=== PATIENT | female | born 1990 | race Caucasian/White ===

== ENCOUNTER 2024-10-03 15:50 | Inpatient (IN) | payer MEDICAID, SELFPAY ==
[2024-10-03 15:51] VITALS: BP 128/83; PULSE 87; TEMP 36.8; O2SAT 95
[2024-10-03 16:15] LABS: Hematocrit 40.5 % (36-47); Hemoglobin 12.70 g/dL (11.27-16.99); Mean Corpuscular HGB Conc 31.4 g/dL (30-55); Mean Corpuscular Hemoglobin 26.8 pg (27-33); Mean Corpuscular Volume 85.6 fl (85-98); Nucleated Red Blood Cells % 0 %; Platelet Count 215 10^3/cmm (157-399); Red Blood Count 4.73 10^6/uL (3.85-5.65); White Blood Count 5.40 10^3/uL (3.29-11.43)
[2024-10-03 16:26] LABS: Glucose Urine UA Negative (Normal); Nitrate Urine Negative (Negative); Specific Gravity, Urine 1.016 (1.005-1.030)
[2024-10-03 16:28] LABS: Add Urine Microscopic? YES
[2024-10-03 16:32] LABS: Acetaminophen < 5.0 ug/mL (10-30); Alanine Aminotransferase 19 U/L (0-33); Albumin Level 3.9 g/dL (3.5-5.2); Alkaline Phosphatase 118 U/L (35-105); Anion Gap 15.5 (5-19); Aspartate Amino Transferase 14 U/L (0-32); Blood Urea Nitrogen 15 mg/dL (6-20); Calcium 9.5 mg/dL (8.5-10.5); Carbon Dioxide 23 mmol/L (22-29); Chloride 107 mmol/L (98-107); Globulin 3.4 g/dL (1.3-4.6); Glucose 135 mg/dL (65-115); Osmolality Calculated 295 mOsm/kg (285-295); Potassium 4.5 mmol/L (3.5-5.1); Salicylate < 0.3 mg/dL (3-10); Sodium 141 mmol/L (136-145); Total Protein 7.3 g/dL (6.6-8.7)
[2024-10-03 16:33] LABS: PCP Screen Urine Negative (Negative)
--- NOTE | 2024-10-03 16:36 | W.ED.ANXIETY ---
HPI - Anxiety General: Chief Complaint: Anxiety Stated Complaint: anxiety, psych eval Time Seen by Provider: 10/03/24 15:51 History of Present Illness: 33-year-old female presents emergency room with complaints of anxiety she was getting anxious and aggressive with staff she lives at a local prison. She has a psych history in the past. She is on multiple medications she is calm at this time and cooperative. She denies suicidal or homicidal ideation. Associated symptoms: Deny chest pain, chills or fever(s) Related Data Home Medications ?Medication ?Instructions ?Recorded ?Confirmed atorvastatin 20 mg tablet (Lipitor) 20 mg PO DAILY 09/30/24 09/30/24 buspirone 10 mg tablet 20 mg PO TID 09/30/24 09/30/24 cetirizine 10 mg tablet (Zyrtec) 10 mg PO DAILY PRN 09/30/24 09/30/24 duloxetine 60 mg capsule,delayed 60 mg PO BID 09/30/24 09/30/24 release famotidine 20 mg tablet 20 mg PO BID 09/30/24 09/30/24 hydroxyzine HCl 50 mg tablet 50 mg PO TID 09/30/24 09/30/24 insulin glargine 100 unit/mL (3 38 unit SUBCUT .hs 09/30/24 09/30/24 mL) subcutaneous pen (Lantus Solostar U-100 Insulin) levonorgestrel 0.15 mg-ethinyl 1 tab PO DAILY 09/30/24 09/30/24 estradiol 30 mcg tablets,3 mos pack(91) levothyroxine 75 mcg tablet 75 mcg PO DAILY 09/30/24 09/30/24 (Euthyrox) loperamide 2 mg capsule 4 mg PO Q6H PRN loose stool 09/30/24 09/30/24 losartan 50 mg tablet 50 mg PO DAILY 09/30/24 09/30/24 metformin 1,000 mg tablet 1,000 mg PO BID 09/30/24 09/30/24 oxybutynin chloride 5 mg 5 mg PO DAILY 09/30/24 09/30/24 tablet,extended release 24 hr prazosin 1 mg capsule 1 mg PO DAILY 09/30/24 09/30/24 propranolol 10 mg tablet 10 mg PO BID 09/30/24 09/30/24 quetiapine 300 mg tablet 600 mg PO .hs 09/30/24 09/30/24 semaglutide 0.25 mg/0.05 mL mg SUBCUT 09/30/24 09/30/24 subcutaneous syringe topiramate 100 mg tablet 100 mg PO BID 09/30/24 09/30/24 tramadol 50 mg tablet 50 mg PO Q6H PRN 09/30/24 09/30/24 Allergies Allergy/AdvReac Type Severity Reaction Status Date / Time amoxicillin Allergy Severe ALGY-Anaphy Verified 10/03/24 16:02 laxis clavulanic acid (From Allergy Severe ALGY-Anaphy Verified 10/03/24 16:02 Augmentin) laxis Penicillins Allergy Severe ALGY-Anaphy Verified 10/03/24 16:02 laxis divalproex sodium (From Allergy Unknown Unknown Verified 10/03/24 16:02 Depakote) Review of Systems Const: Denies: fever(s) or chills Card: Denies: chest pain Resp: Denies: dyspnea GI: Denies: abdominal pain : Denies: dysuria, urinary frequency or urinary urgency Musc: Denies: neck pain or back pain Skin/Breast: Denies: rash PFSH ED PFSH: Medical History Overactive bladder GERD without esophagitis Acquired hypothyroidism Insulin dependent type 2 diabetes mellitus, uncontrolled Essential hypertension Bipolar 1 disorder Generalized anxiety disorder with panic attacks Social History Smoking and tobacco/nicotine status: never used tobacco/nicotine Physical Exam Const: GENERAL APPEARANCE: cooperative ORIENTATION/CONSCIOUSNESS: Yes awake, Yes oriented to person, Yes oriented to place and Yes oriented to time HENMT: COMMON NORMALS: normocephalic, atraumatic and hearing grossly normal bilaterally HEAD & SCALP: normocephalic and atraumatic Resp: COMMON NORMALS: normal respiratory effort, No retractions, No use of accessory muscles and clear to auscultation bilaterally AUSCULTATION: clear to auscultation bilaterally Cardio: COMMON NORMALS: regular rate, regular rhythm and No murmurs present (Cardio) RATE: regular rate RHYTHM: regular rhythm Extremity: COMMON NORMALS: normal to inspection, capillary refill normal, no clubbing, cyanosis or edema, no calf tenderness and no pedal edema Neuro: SENSORIUM/ORIENTATION: Yes oriented to person, Yes oriented to place and Yes oriented to time Skin: COMMON NORMALS: no rashes or lesions noted GENERAL SKIN EXAM: no rashes or lesions noted Course Vital Signs: Vital signs: Vital Signs Temperature 98.3 F 10/03/24 15:51 Pulse Rate 87 10/03/24 15:51 Blood Pressure 128/83 10/03/24 15:51 Pulse Oximetry 95 10/03/24 15:51 Oxygen Delivery Me thod Room Air 10/03/24 15:51 MDM - Anxiety Medical Decision Making Patient has explosive outbursts. She gets very aggressive. She has done this at the prison evidently she was previously in [place] and was transferred there because of an issue related to her explosive outbursts and anxiety. Discussed case with Dr. Vásquez patient is on a may leave medicines to be difficult to adjust as an outpatient and may result in her becoming even more unstable. Initially I discussed the patient we would be recommending admission she became quite aggressive shortly after we gave her a dose of Geodon. We are allowing her to redirect now. Will admit to MPU for medication adjustments and management. At this point she is a danger to herself and others and will be under 96-hour hold Medical Records I reviewed the patient's medical records. Lab Data I reviewed the patient's lab results. 10/03/24 16:06 10/03/24 16:06 Laboratory Results WBC 5.40 10^3/uL (3.29-11.43) 10/03/24 16:06 RBC 4.73 10^6/uL (3.85-5.65) 10/03/24 16:06 Hgb 12.70 g/dL (11.27-16.99) 10/03/24 16:06 Hct 40.5 % (36-47) 10/03/24 16:06 MCV 85.6 fl (85-98) 10/03/24 16:06 MCH 26.8 pg (27-33) L 10/03/24 16:06 MCHC 31.4 g/dL (30-55) 10/03/24 16:06 RDW 14.0 % (12.1-15.1) 10/03/24 16:06 Plt Count 215 10^3/cmm (157-399) 10/03/24 16:06 MPV 9.4 fL (7.4-10.4) 10/03/24 16:06 Neut % (Auto) 62.3 % 10/03/24 16:06 Lymph % (Auto) 30.4 % 10/03/24 16:06 Burt % (Auto) 4.6 % 10/03/24 16:06 Eos % (Auto) 1.9 % 10/03/24 16:06 Baso % (Auto) 0.4 % 10/03/24 16:06 Neut # (Auto) 3.37 10^3/uL (1.8-7.7) 10/03/24 16:06 Lymph # (Auto) 1.6 10^3/uL (0.8-4.8) 10/03/24 16:06 Burt # (Auto) 0.3 10^3/uL (0.2-0.9) 10/03/24 16:06 Eos # (Auto) 0.1 10^3/uL (0.0-0.8) 10/03/24 16:06 Baso # (Auto) 0.0 10^3/uL (0.0-0.1) 10/03/24 16:06 Nucleated RBC % (auto) 0 % 10/03/24 16:06 Nucleated RBCs # 0.0 /100WBC 10/03/24 16:06 Sodium 141 mmol/L (136-145) 10/03/24 16:06 Potassium 4.5 mmol/L (3.5-5.1) 10/03/24 16:06 Chloride 107 mmol/L (98-107) 10/03/24 16:06 Carbon Dioxide 23 mmol/L (22-29) 10/03/24 16:06 Anion Gap 15.5 (5-19) 10/03/24 16:06 BUN 15 mg/dL (6-20) 10/03/24 16:06 Creatinine 1.2 mg/dL (0.5-0.9) H 10/03/24 16:06 GFR Calculation 51.4 mL/min (90-130) L 10/03/24 16:06 Glucose 135 mg/dL (65-115) H 10/03/24 16:06 Calculated Osmolality 295 mOsm/kg (285-295) 10/03/24 16:06 Calcium 9.5 mg/dL (8.5-10.5) 10/03/24 16:06 Total Bilirubin 0.2 mg/dL (0.15-1.2) 10/03/24 16:06 AST 14 U/L (0-32) 10/03/24 16:06 ALT 19 U/L (0-33) 10/03/24 16:06 Alkaline Phosphatase 118 U/L (35-105) H 10/03/24 16:06 Total Protein 7.3 g/dL (6.6-8.7) 10/03/24 16:06 Albumin 3.9 g/dL (3.5-5.2) 10/03/24 16:06 Globulin 3.4 g/dL (1.3-4.6) 10/03/24 16:06 Urine Color Yellow (Yellow) 10/03/24 16:15 Urine Appearance Clear (CLEAR) 10/03/24 16:15 Urine pH 7.0 (5-7) 10/03/24 16:15 Ur Specific [place] 1.016 (1.005-1.030) 10/03/24 16:15 Urine Protein Negative (Negative) 10/03/24 16:15 Urine Glucose (UA) Negative (Normal) 10/03/24 16:15 Urine Ketones Negative (Negative) 10/03/24 16:15 Urine Blood 2+ (Negative) A 10/03/24 16:15 Urine Nitrate Negative (Negative) 10/03/24 16:15 Urine Bilirubin Negative (Negative) 10/03/24 16:15 Urine Urobilinogen 1.0 mg/dL (Negative) 10/03/24 16:15 Ur Leukocyte Esterase Trace (Negative) A 10/03/24 16:15 Urine RBC 0-2 /hpf (0-2) 10/03/24 16:15 Urine WBC 0-5 /hpf (0-5) 10/03/24 16:15 Ur Squamous Epith Cells 6-10 /hpf (0-5) 10/03/24 16:15 Amorphous Sediment Not Reportable 10/03/24 16:15 Urine Bacteria None seen /hpf (NONE) 10/03/24 16:15 Hyaline Casts 0.81 /lpf 10/03/24 16:15 Salicylates < 0.3 mg/dL (3-10) L 10/03/24 16:06 Urine Opiates Screen Negative ng/mL (Negative) 10/03/24 16:15 Acetaminophen < 5.0 ug/mL (10-30) L 10/03/24 16:06 Ur Barbiturates Screen Negative ng/mL (Negative) 10/03/24 16:15 Ur Phencyclidine Scrn Negative ng/mL (Negative) 10/03/24 16:15 Ur Amphetamines Screen Negative ng/mL (Negative) 10/03/24 16:15 U Benzodiazepines Scrn Negative ng/mL (Negative) 10/03/24 16:15 Urine Cocaine Screen Negative ng/mL (Negative) 10/03/24 16:15 U Marijuana (THC) Screen Negative ng/mL (Negative) 10/03/24 16:15 No radiology studies performed this visit Discharge Plan Discharge Patient Disposition: Admitted As Inpatient Clinical Impression: Intermittent explosive behavioral outbursts, Insulin dependent type 2 diabetes mellitus, uncontrolled, Generalized anxiety disorder with panic attacks, Bipolar 1 disorder Condition: Stable Coding Level of Care Code ED Nutrition Consultant for Iris Hein
[2024-10-03] MEDS: water for injection-sterile 10 ML 1.2 ML (17:37)
--- NOTE | 2024-10-03 18:31 | PC.NURSE ---
Involuntary 96 hour hold rights read and reviewed with patient. Gonzalo from security present during reading of rights. Patient verbalized understandings and copy of rights given to patient.
[2024-10-03 20:11] VITALS: BP 124/76; PULSE 83; RESP 19; TEMP 36.9; O2SAT 94
[2024-10-03 20:50] VITALS: BP 124/76; PULSE 83; RESP 19; TEMP 36.9; O2SAT 94
--- NOTE | 2024-10-03 22:11 | PC.NURSE ---
Patients Guardian : Marielena Manny WAS CALLED AND INFORMED OF PATIENTS ADMISSION; [phone] Cell phone number. DO NOT GIVE NUMBER TO PATIENT!!
--- NOTE | 2024-10-04 06:46 | PC.NURSE ---
vitals not doneper nurse, resp 16
[2024-10-04 08:09] VITALS: BP 116/75
[2024-10-04] MEDS: ATORVASTATIN 10 MG TABLET 20 MG PO (08:09)
[2024-10-04 08:20] VITALS: PULSE 80; TEMP 36.3; O2SAT 97
[2024-10-04] MEDS: oxybutynin chloride XL 5 MG TABLET PO (10:09)
[2024-10-04] MEDS: [UNRECOGNIZED DRUG - OTHER] PO (10:45)
[2024-10-04] MEDS: LEVONORGESTREL PO (10:45)
[2024-10-04] MEDS: ETHINYL ESTRADIOL PO (10:45)
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
[2024-10-04 13:51] VITALS: BP 134/84; PULSE 101; RESP 17; TEMP 36.9; O2SAT 96
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
[2024-10-04 20:10] VITALS: BP 123/79; PULSE 87; RESP 18; TEMP 36.9; O2SAT 96
--- NOTE | 2024-10-05 06:05 | PC.NURSE ---
pt asleep, vitals not done per nurse, resp. 16
--- NOTE | 2024-10-05 07:27 | NUR.SHIFT ---
Pt states that she slept good last night, no one interupted her. She rates her anxiety a 5/10 and depressiona 0/10. There are no reports of SI/HI or hallucinations. She states that she has a headache really bad and rates that a 6/10, I have given her tylenol for this. She is sitting calmly in the dayroom coloring with 1:1 sitter at bedside.
[2024-10-05] MEDS: [UNRECOGNIZED DRUG - OTHER] PO (08:49)
[2024-10-05] MEDS: ETHINYL ESTRADIOL PO (08:49)
[2024-10-05] MEDS: LEVONORGESTREL PO (08:49)
[2024-10-05] MEDS: oxybutynin chloride XL 5 MG TABLET PO (08:51)
[2024-10-05] MEDS: ATORVASTATIN 10 MG TABLET 20 MG PO (08:53)
[2024-10-05 08:55] VITALS: BP 158/83
[2024-10-05 08:57] VITALS: BP 158/83; PULSE 85; RESP 17; TEMP 37.3; O2SAT 90
--- NOTE | 2024-10-05 12:50 | W.PM.NPUPNS ---
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 Patient was compliant on the unit. She remained on one-to-one. She had reported some improved sleep with trazodone. She had requested something to help her with anxiety and provided further information regarding her longstanding problems with managing worry. She had endorsed having some occasional nightmares and intense recollections regarding her past trauma. She had been redirectable here on the unit. She had reported that she had lost a significant amount of weight and felt that her medications had been helpful. She had reported that in the last year she had been on BuSpar and stated some help with managing worry. She denied any symptoms suggestive of obsessive-compulsive disorder. She denied any psychotic symptoms or symptoms of trey. Mental Status Exam MSE Comments: She is a casually dressed morbidly obese female who was pleasant and cooperative on interview. Her speech was productive and normal in volume and slightly decreased in rate. There was no evidence of any abnormal involuntary motor movements, tics, or tremors appreciated. There was no evidence of psychomotor retardation. Her mood was described as allright. Her affect was mood congruent and anxious. Her thought process was linear but superficial. Her thought content revealed no suicidal or homicidal ideation. There was no evidence of delusional thinking. She did not appear to be responding to internal stimuli. Her attention span appeared limited. Her recent and remote memory appeared grossly intact. She was alert and oriented to person and place but not date. Her insight is poor. Her judgment is limited. Her impulse control appeared poor. Her fund of knowledge appeared commensurate with mild cognitive impairment. Vitals/I&O/Wt Last Vital Signs Temp 99.1 F 10/05/24 08:57 Pulse 85 10/05/24 08:57 Resp 17 10/05/24 08:57 BP 158/83 10/05/24 08:57 Pulse Ox 90 10/05/24 08:57 O2 Del Method Room Air 10/05/24 08:57 Weight last 48 hrs Weight 181.437 kg Data NPU 10/03/24 16:06 10/03/24 16:06 A&P Assessment and plan 1. Intermittent explosive disorder: 2. Anxiety disorder, unspecified: Plan: 34-year-old female who presents with a history of aggression and anxiety on multiple medications residing in a [facility] for the past 2 weeks. She remains under guardianship. #1.? Engage patient in individual milieu and group therapy. #2?? Recommend sober living treatment at the highest level of care to which the patient is willing to commit #3??? Restart outpatient medications. Increase propranolol to 10mg tid to target anxiety. #4?? 1-1 observation due to aggressioin, ? #5?? Will attempt to gather collateral information PDMP PDMP Reviewed: Not Reviewed Involuntary Hold Information Hold Status: Legal Status: Active Guardianship Date/Time Hold Expires: AMBER GURROLA [phone] CELL DO NOT GIVE TO PATIENT! Attestations NPU Medical Necessity Statement*: Inpatient hospitalization is medically necessary and deemed to ?be ?the clinically appropriate intervention ?at this time.? We will monitor/initiate medications and make changes as indicated.? The patient?s likely length of stay 3-5 days. Coding Level of Care Code Acute Code for [facility] Fwd Diagnoses Intermittent explosive disorder F63.81 Anxiety disorder, unspecified F41.9
--- NOTE | 2024-10-05 13:21 | PC.NURSE ---
Pt was speaking with her aunt on the phone and asked pt if she could speak with staff. Pt agreed. Aunt called into the nurses station. She wante to let us know that prior to the age of 17 pt was diagnosed with autism and was treated as such with medications. She states that she did really well. She says that as she became an adult and was no longer being recognized as autistic as much anymore that's when she began to struggle with unstable behaviors. She states that change is really hard for her and the homes that she has been living at aren't structured enough for her, that's why she does better when she is in the hospital. I passed this information on the Dr. Hernandez.
[2024-10-05 13:51] VITALS: BP 108/67; PULSE 93; RESP 17; TEMP 36.6; O2SAT 93
[2024-10-05 19:59] VITALS: BP 121/73; PULSE 98; RESP 18; TEMP 37.2; O2SAT 93
--- NOTE | 2024-10-05 20:55 | PC.NURSE ---
Addendum entered by Joseph Rincon RN 10/05/24 20:56: Lantus 38ml was not given for a blood sugar of 141 d/t possibility of pt.being brittle. Was not able to reach the [facility]. Guardian was notified and was in agreement to continue to monitor her blood sugar level. The guardian stated the phones were down in [place]. Original Note: WAS UNNABBLE
[2024-10-06 06:00] VITALS: BP 119/76; PULSE 98; RESP 16; TEMP 37.4; O2SAT 97
--- NOTE | 2024-10-06 07:20 | PC.NURSE ---
Pt.'s CBG this am was 138
[2024-10-06] MEDS: ATORVASTATIN 10 MG TABLET 20 MG PO (10:06)
[2024-10-06 10:07] VITALS: BP 119/76
[2024-10-06] MEDS: oxybutynin chloride XL 5 MG TABLET PO (10:07)
[2024-10-06] MEDS: [UNRECOGNIZED DRUG - OTHER] PO (10:08)
[2024-10-06] MEDS: ETHINYL ESTRADIOL PO (10:08)
[2024-10-06] MEDS: LEVONORGESTREL PO (10:08)
--- NOTE | 2024-10-06 10:34 | PC.NURSE ---
ROSE from [facility] called and stated pt. had sent an email to the social work administrator on 10/03/24 and said they had not done much for more. Signee having staff check the Miguel bear to see if something was inside the bear. Staff confirmed nothing was in the bear. Signee informed ROSE that the email was probably sent while pt. was still in the ER and had access to her phone still. ROSE stated pt. was a handful.
--- NOTE | 2024-10-06 10:38 | PC.NURSE ---
Signee let DON know that pt.'s Propranolol had been increased to 10mg TID.
--- NOTE | 2024-10-06 11:13 | PC.NURSE ---
CBG at 11:15 today is 169.
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
[2024-10-06 13:20] VITALS: BP 119/76; PULSE 98; RESP 16; TEMP 37.4
--- NOTE | 2024-10-06 13:24 | PC.NURSE ---
Report called in by phone to a Mari at [facility].
[2024-10-06 13:52] VITALS: BP 94/61; PULSE 88; RESP 17; TEMP 36.6; O2SAT 95
== END 2024-10-06 14:27 | disposition home or self-care (01) | DRG 883 ==
LOC: ER 17:46 → NP 18:30
PROVIDERS: Admitting Provider Psychiatry & Neurology Psychiatry; Emergency Provider Family Medicine; PCP Family Medicine; Visit Provider Psychiatry & Neurology Psychiatry
DX: F63.81 Intermittent explosive disorder (principal); F41.9 Anxiety disorder, unspecified; E66.01 Morbid (severe) obesity due to excess calories; K21.9 Gastro-esophageal reflux disease without esophagitis; E03.9 Hypothyroidism, unspecified; E11.9 Type 2 diabetes mellitus without complications; Z79.4 Long term (current) use of insulin; I10 Essential (primary) hypertension; F31.9 Bipolar disorder, unspecified
CPT/HCPCS: 36415; 36416; 80053; 80306; 80307; 81001; 82962; 85025; 96372; 97150; 97165; 99285; J3486; J9999

== ENCOUNTER 2024-10-17 18:12 | Inpatient (IN) | payer MEDICAID, SELFPAY ==
[2024-10-17 18:16] VITALS: BP 122/75; PULSE 83; RESP 20; TEMP 37; O2SAT 95; BMI 58.2
--- NOTE | 2024-10-17 18:17 | ECG_ITS ---
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
[2024-10-17 18:38] LABS: Hematocrit 39.0 % (36-47); Hemoglobin 12.30 g/dL (11.27-16.99); Mean Corpuscular HGB Conc 31.5 g/dL (30-55); Mean Corpuscular Hemoglobin 27.0 pg (27-33); Mean Corpuscular Volume 85.7 fl (85-98); Nucleated Red Blood Cells % 0 %; Platelet Count 245 10^3/cmm (157-399); Red Blood Count 4.55 10^6/uL (3.85-5.65); White Blood Count 7.10 10^3/uL (3.29-11.43)
[2024-10-17 19:06] LABS: Alanine Aminotransferase 14 U/L (0-33); Albumin Level 3.8 g/dL (3.5-5.2); Alkaline Phosphatase 105 U/L (35-105); Anion Gap 13.4 (5-19); Aspartate Amino Transferase 10 U/L (0-32); Blood Urea Nitrogen 15 mg/dL (6-20); Calcium 9.5 mg/dL (8.5-10.5); Carbon Dioxide 21 mmol/L (22-29); Chloride 106 mmol/L (98-107); Globulin 3.5 g/dL (1.3-4.6); Glucose 106 mg/dL (65-115); Osmolality Calculated 283 mOsm/kg (285-295); Potassium 4.4 mmol/L (3.5-5.1); Sodium 136 mmol/L (136-145); Thyroid Stimulating Hormone 2.01 uIU/mL (0.27-4.20); Total Protein 7.3 g/dL (6.6-8.7)
[2024-10-17 19:11] LABS: Acetaminophen < 5.0 ug/mL (10-30); Alcohol Level < 10 mg/dL (0-10); Creatinine Clr Calc Pharmacy 93.1621; Salicylate < 0.3 mg/dL (3-10)
[2024-10-17 19:36] LABS: Glucose Urine UA Negative (Normal); Nitrate Urine Negative (Negative); Specific Gravity, Urine 1.016 (1.005-1.030)
[2024-10-17 19:40] LABS: Add Urine Microscopic? YES; HCG Qualitative Urine. Negative (Negative)
[2024-10-17 20:23] LABS: PCP Screen Urine Negative (Negative)
[2024-10-17 20:56] LABS: UA Slide Review UA Slide Review Perf
[2024-10-17 22:16] VITALS: BP 124/81; PULSE 78; O2SAT 96
--- NOTE | 2024-10-17 22:46 | PC.NURSE ---
Pt is being admitted, when this nurse asked pt what size scrubs she would need to be changed out into pt states :You don't have my size, last time I was here they didn't have my size then either I had to wear my clothes. Charli reymundo Small notified and called to see if we have size 4x scrubs, at this time we do not have appropriate size scrubs, this nurse and another female staff member searched pt, pt has on red shirt with no strings no button, no bra on, pt has underwear and shorts on with no pockets, no belts no buttons, pt has plastic slip on sandals. PT has no jewelry on. Pt has a trevin bear that pt states last time I went down there they asked the doctor and he said I could keep it. At this time bear searched and nothing noted on bear, this nurse asked if pt would be okay to have bear placed separate until down to [facility], pt states it would be okay. Security aware.
[2024-10-17 23:32] VITALS: BP 119/78; PULSE 71; RESP 18; TEMP 36.9; O2SAT 90
[2024-10-17 23:38] VITALS: BP 124/81; PULSE 78; O2SAT 96
[2024-10-18 06:00] VITALS: BP 119/78; PULSE 71; RESP 18; TEMP 36.9; O2SAT 90
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
[2024-10-18 08:40] VITALS: BP 130/78
[2024-10-18] MEDS: ATORVASTATIN 10 MG TABLET 20 MG PO (08:40)
[2024-10-18] MEDS: oxybutynin chloride XL 5 MG TABLET PO (08:40)
[2024-10-18 14:00] VITALS: BP 124/71; PULSE 84; RESP 20; O2SAT 96
[2024-10-18 20:21] VITALS: BP 123/83; PULSE 81; RESP 16; TEMP 36.7; O2SAT 96
[2024-10-18] MEDS: insulin glargine 100 units/1 mL 38 UNIT SUBCUT (22:04)
[2024-10-19 06:00] VITALS: BP 124/80; PULSE 89; RESP 18; TEMP 36.9; O2SAT 95
[2024-10-19] MEDS: oxybutynin chloride XL 5 MG TABLET PO (08:06)
[2024-10-19] MEDS: ATORVASTATIN 10 MG TABLET 20 MG PO (08:06)
--- NOTE | 2024-10-19 09:49 | P.NPUPN_ITS ---
Subjective NPU 2 Subjective: Patient presented today reporting that she is doing all right. She continues to report that she struggles at her outpatient residential situation but does not struggle here at all bringing the concern that the situation is more about that location and that it is about some baseline psychiatric condition however we did discuss the risks, benefits and alternatives of considering something like Abilify or Invega and she understood and agreed to proceed as documented in this note. She denied any side effects to her medications. Mental Status Exam 2 MSE Comments: This is a morbidly obese white female allowed to wear her home close secondary to not having scrubs large enough to fit her with adequate grooming and eye contact. No abnormal movements except for mild psychomotor agitation. Cooperative with exam and mild distress. Speech was normal rate is slightly decreased volume. Mood described as my meds are not working right, affect seems slightly irritable. Thought process linear. Thought content: Patient endorsed suicidal but denied homicidal ideation, there were no delusions reported or noted, she denied auditory visual hallucination. Attention and concentration were mostly intact and memory was mostly unreliable but likely intentionally so but not formally tested. She is alert and oriented x 3. Insight, judgment and impulse control are impaired. Intellectual ability is limited versus impaired. Vitals/I&O/Wt Last Vital Signs Temp 98.5 F 10/19/24 06:00 Pulse 89 10/19/24 06:00 Resp 18 10/19/24 06:00 BP 124/80 10/19/24 06:00 Pulse Ox 95 10/19/24 06:00 O2 Del Method Room Air 10/19/24 06:00 10/18/24 10/19/24 10/19/24 22:59 06:59 14:59 Intake Total 0 / 0 Balance 0 / 0 Weight last 48 hrs Weight 158.757 kg Data NPU 10/17/24 18:32 10/17/24 18:32 A&P Assessment and plan 1. Intermittent explosive disorder: 2. Anxiety disorder, unspecified: Plan: 34-year-old female who presents with a history of aggression and anxiety on multiple medications residing in a senior care for the past 3 weeks with no active addiction, likely borderline electrical functioning versus intellectual disability mild with a guardian and current failure to adjust at a new facility returning reporting of need for medication changes but it seems she is more interested in the possibility of facility change. 1. Continue current medication. 2. Encourage individual, group and milieu therapy. 3. Obtain collateral information. 4. Continue current level of observation PDMP PDMP Reviewed: Not Reviewed Involuntary Hold Information 2 Hold Status: Legal Status: Active Guardianship Attestations NPU 2 Medical Necessity Statement*: Inpatient hospitalization is medically necessary and the clinically appropriate intervention at this time. We will monitor/initiate medications and make changes as indicated. Likely length of stay 2-4 days. Coding Level of Care Code Acute Code for [facility] Diagnoses Intermittent explosive disorder F63.81 Anxiety disorder, unspecified F41.9
[2024-10-19 13:15] VITALS: BP 90/52; PULSE 85; RESP 20; TEMP 36.4; O2SAT 95
--- NOTE | 2024-10-19 15:12 | PC.NURSE ---
PRN IMODIUM 2 MG GIVEN PO PER PT C/O LOOSE STOOL. WILL CONT TO MONITOR FOR DESIRED MED EFFECTIVENESS.
--- NOTE | 2024-10-19 15:15 | PC.NURSE ---
Patient with ecscoriation under breasts and gaulded to pannus and bilateral groins. Sites cleansed. Patient refused nystatin powder stating she thinks its making it worse. Pillow cases placed to prevent moisture.
[2024-10-19] MEDS: insulin glargine 100 units/1 mL 38 UNIT SUBCUT (20:43)
[2024-10-20 06:00] VITALS: BP 90/57; PULSE 83; RESP 18; TEMP 36.8; O2SAT 95
[2024-10-20 08:53] VITALS: BP 90/57
[2024-10-20] MEDS: oxybutynin chloride XL 5 MG TABLET PO (08:53)
[2024-10-20] MEDS: ATORVASTATIN 10 MG TABLET 20 MG PO (08:53)
--- NOTE | 2024-10-20 12:05 | PC.NURSE ---
Pt.'s guardian called and informed signee that pt. was not appropriate for the SNF, and a place called [facility] was looking at accepting her, but only if pt. was put on a long acting injection. The guardian said prior to being at the [facility] pt was in a hospital for a year before finding placement. Dr. Duque was ok with adding a local company intermodal truck driver inj. wanting to know if pt. has ever been on Abilify or Invega. Pt. believes she has taken Abilify before and suggested signee talk to her aunt. Signee is calling the aunt.
--- NOTE | 2024-10-20 12:14 | PC.NURSE ---
The aunt said pt. has been on Abilify before and she thought she did well with the medication, better than the medication she is currently on..
--- NOTE | 2024-10-20 12:18 | PC.NURSE ---
Dr. Duque gave verbal order to start Abilify 10mg PO now and then QD. Also gave verbal order for Abilify Maintena 400mg IM to be given today.
[2024-10-20] MEDS: ARIPiprazole Maintena 400 MG IM (12:50)
[2024-10-20] MEDS: ETHINYL ESTRADIOL PO (12:50)
[2024-10-20] MEDS: LEVONORGESTREL PO (12:50)
--- NOTE | 2024-10-20 12:58 | PC.NURSE ---
Pt given 400mg IM Abilify injection in L deltoid. Pt tolerated shot well.
--- NOTE | 2024-10-20 13:17 | P.NPUPN_ITS ---
Subjective NPU 2 Subjective: Patient presented today reporting things are going really well. She reports she was unaware that the facility was looking for alternatives. She reported that she only has soreness from the injection of Abilify Maintena which was started after discussion of the risks, benefits and alternatives with her and her guardian and they understood and agreed to proceed as is documented in this note. She reports that she is thankful for our initiating this new medication because she reported feeling better already. She denied any side effects to the medication. Mental Status Exam 2 MSE Comments: This is a morbidly obese white female allowed to wear her home close secondary to not having scrubs large enough to fit her with adequate grooming and eye contact. No abnormal movements except for mild psychomotor agitation. Cooperative with exam and mild distress. Speech was normal rate is slightly decreased volume. Mood described as my meds are not working right, affect seems slightly irritable. Thought process linear. Thought content: Patient endorsed suicidal but denied homicidal ideation, there were no delusions reported or noted, she denied auditory visual hallucination. Attention and concentration were mostly intact and memory was mostly unreliable but likely intentionally so but not formally tested. She is alert and oriented x 3. Insight, judgment and impulse control are impaired. Intellectual ability is limited versus impaired. Vitals/I&O/Wt Last Vital Signs Temp 98.3 F 10/20/24 06:00 Pulse 83 10/20/24 06:00 Resp 18 10/20/24 06:00 BP 90/57 10/20/24 08:53 Pulse Ox 95 10/20/24 06:00 O2 Del Method Room Air 10/20/24 06:00 Data NPU 10/17/24 18:32 10/17/24 18:32 A&P Assessment and plan 1. Intermittent explosive disorder: 2. Anxiety disorder, unspecified: Plan: 34-year-old female who presents with a history of aggression and anxiety on multiple medications residing in a detention for the past 3 weeks with no active addiction, likely borderline electrical functioning versus intellectual disability mild with a guardian and current failure to adjust at a new facility returning reporting of need for medication changes but it seems she is more interested in the possibility of facility change. 1. Continue current medication. Patient given Abilify Maintena 400 mg IM and given oral coadministration for the 2 weeks per protocol so has 13 days remaining of oral Abilify. 2. Encourage individual, group and milieu therapy. 3. Obtain collateral information. Apparently patient may have an opportunity to go to a new facility. 4. Continue current level of observation PDMP PDMP Reviewed: Not Reviewed Involuntary Hold Information 2 Hold Status: Legal Status: Active Guardianship Attestations NPU 2 Medical Necessity Statement*: Inpatient hospitalization is medically necessary and the clinically appropriate intervention at this time. We will monitor/initiate medications and make changes as indicated. Likely length of stay 1-3 days. Coding Level of Care Code Acute Code for [facility] Diagnoses Intermittent explosive disorder F63.81 Anxiety disorder, unspecified F41.9
[2024-10-20 13:58] VITALS: BP 108/69; PULSE 89; RESP 18; TEMP 36.8; O2SAT 96
[2024-10-20 20:27] VITALS: BP 145/83; PULSE 85; RESP 18; TEMP 37.4; O2SAT 95
[2024-10-20] MEDS: insulin glargine 100 units/1 mL 38 UNIT SUBCUT (20:55)
[2024-10-21 06:00] VITALS: BP 100/63; PULSE 94; RESP 16; TEMP 36.9; O2SAT 93
[2024-10-21] MEDS: LEVONORGESTREL PO (08:35)
[2024-10-21] MEDS: ETHINYL ESTRADIOL PO (08:35)
[2024-10-21] MEDS: ATORVASTATIN 10 MG TABLET 20 MG PO (08:36)
[2024-10-21] MEDS: oxybutynin chloride XL 5 MG TABLET PO (08:36)
[2024-10-21 08:39] VITALS: BP 115/78
[2024-10-21 08:40] VITALS: BP 115/78
--- NOTE | 2024-10-21 11:25 | NUR.SHIFT ---
Pt states that she slept good last night. She rates her anxiety is a 3/10 and depression 0/10. No reports of SI/HI or hallucinations. She rates her bilateral ankle pain and low back pain a 5/10. She is calm and cooperative on assessment.
--- NOTE | 2024-10-21 13:59 | P.NPUPN_ITS ---
Subjective NPU 2 Subjective: Patient presented today reporting that things are going fairly well. She is awaiting to hear the word as to her official acceptance at this new facility and when they might receive her. We discussed utilizing that information to make a determination for discharge. She denied any side effects of the medication and reported hopefulness about things going in the right direction moving forward. Mental Status Exam 2 MSE Comments: This is a morbidly obese white female allowed to wear her home close secondary to not having scrubs large enough to fit her with adequate grooming and eye contact. No abnormal movements except for mild psychomotor retardation. Cooperative with exam in no acute distress. Speech was normal rate is slightly decreased volume. Mood described as my meds are not working right, affect seems slightly irritable. Thought process linear. Thought content: Patient denied suicidal or homicidal ideation, there were no delusions reported or noted, she denied auditory visual hallucination. Attention and concentration were mostly intact and memory was mostly unreliable but likely intentionally so but not formally tested. She is alert and oriented x 3. Insight, judgment and impulse control are impaired. Intellectual ability is limited versus impaired. Vitals/I&O/Wt Last Vital Signs Temp 98.6 F 10/21/24 14:00 Pulse 93 10/21/24 14:00 Resp 20 H 10/21/24 14:00 BP 115/76 10/21/24 14:00 Pulse Ox 95 10/21/24 14:00 O2 Del Method Room Air 10/21/24 14:00 Data NPU 10/17/24 18:32 10/17/24 18:32 A&P Assessment and plan 1. Intermittent explosive disorder: 2. Anxiety disorder, unspecified: Plan: 34-year-old female who presents with a history of aggression and anxiety on multiple medications residing in a long term for the past 3 weeks with no active addiction, likely borderline electrical functioning versus intellectual disability mild with a guardian and current failure to adjust at a new facility returning reporting of need for medication changes but it seems she is more interested in the possibility of facility change. 1. Continue current medication. Patient given Abilify Maintena 400 mg IM and given oral coadministration for the 2 weeks per protocol so has 12 more oral doses due. 2. Encourage individual, group and milieu therapy. 3. Obtain collateral information. Apparently patient may have an opportunity to go to a new facility. She has reportedly gotten a tentative acceptance at a new facility and we are awaiting information on that. Once we have that information we will target a discharge plan. 4. Continue every 15 minute checks for safety PDMP PDMP Reviewed: Not Reviewed Involuntary Hold Information 2 Hold Status: Legal Status: Active Guardianship Attestations NPU 2 Medical Necessity Statement*: Inpatient hospitalization is medically necessary and the clinically appropriate intervention at this time. We will monitor/initiate medications and make changes as indicated. Likely length of stay 1-3 days. Coding Level of Care Code Acute Code for Chg Fwd Diagnoses Intermittent explosive disorder F63.81 Anxiety disorder, unspecified F41.9
[2024-10-21 14:00] VITALS: BP 115/76; PULSE 93; RESP 20; TEMP 37; O2SAT 95
[2024-10-21 19:51] VITALS: BP 134/65; PULSE 88; RESP 20; TEMP 37.1; O2SAT 96
[2024-10-21] MEDS: insulin glargine 100 units/1 mL 38 UNIT SUBCUT (20:32)
[2024-10-22 06:00] VITALS: BP 136/84; PULSE 85; RESP 19; TEMP 36.9; O2SAT 93
[2024-10-22 08:09] VITALS: BP 136/84
[2024-10-22] MEDS: ETHINYL ESTRADIOL PO (08:09)
[2024-10-22] MEDS: LEVONORGESTREL PO (08:09)
[2024-10-22] MEDS: ATORVASTATIN 10 MG TABLET 20 MG PO (08:09)
[2024-10-22] MEDS: oxybutynin chloride XL 5 MG TABLET PO (08:11)
--- NOTE | 2024-10-22 09:24 | NUR.SHIFT ---
Pt states that she slept really good last night. She rates her anxiety a 2/10 and her depression a 2/10. No reports of SI/HI or hallucinations. She rates that pain in her bilateral ankles a 4/10. She is calm and cooperative on assessment. She is hopeful to d/c back to a halfway today.
[2024-10-22 14:00] VITALS: BP 119/61; PULSE 85; RESP 16; TEMP 36.6; O2SAT 97
--- NOTE | 2024-10-22 18:06 | P.NPUPN_ITS ---
Subjective NPU 2 Subjective: Patient presented today reporting that things are going really well. She is really thankful for all the help she received and reported that the Abilify injection and Abilify overall seems to be doing well. We discussed that her last oral dose will be on 02 November. But that this will be in her documentation. We discussed them saying that she is more or less at a better female bed. So she was open to returning to her current facility until that bed date comes. She denied any side effects to the medication and we tentatively discussed for discharge tomorrow. Mental Status Exam 2 MSE Comments: This is a morbidly obese white female allowed to wear her home close secondary to not having scrubs large enough to fit her with adequate grooming and eye contact. No abnormal movements except for mild psychomotor retardation. Cooperative with exam in no acute distress. Speech was normal rate is slightly decreased volume. Mood described as everything is going great and I am doing well on the new medication, affect appears congruent. Thought process linear. Thought content: Patient denied suicidal or homicidal ideation, there were no delusions reported or noted, she denied auditory visual hallucination. Attention and concentration were mostly intact and memory was mostly reliable but none were formally tested. She is alert and oriented x 3. Insight, judgment and impulse control are improving. Intellectual ability is limited versus impaired. Vitals/I&O/Wt Last Vital Signs Temp 97.8 F 10/22/24 14:00 Pulse 85 10/22/24 14:00 Resp 16 10/22/24 14:00 BP 119/61 10/22/24 14:00 Pulse Ox 97 10/22/24 14:00 O2 Del Method Room Air 10/22/24 14:00 10/22/24 10/22/24 10/22/24 06:59 14:59 22:59 Intake Total 0 / 0 Balance 0 / 0 Data NPU 10/17/24 18:32 10/17/24 18:32 A&P Assessment and plan 1. Intermittent explosive disorder: 2. 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 1. Continue current medication. Patient given Abilify Maintena 400 mg IM and given oral coadministration for the 2 weeks per protocol so has 11 more oral doses due. 2. Encourage individual, group and milieu therapy. 3. Obtain collateral information. Apparently patient may have an opportunity to go to a new facility. She has reportedly gotten a tentative acceptance at a new facility and we are awaiting information on that. Once we have that information we will target a discharge plan. There is not a female bed available at this moment but she is the person they plan on giving the next female bed to. Discussed her returning to her current facility to await that new facility bed date. 4. Continue every 15 minute checks for safety PDMP PDMP Reviewed: Not Reviewed Involuntary Hold Information 2 Hold Status: Legal Status: Active Guardianship Attestations NPU 2 Medical Necessity Statement*: Inpatient hospitalization is medically necessary and the clinically appropriate intervention at this time. We will monitor/initiate medications and make changes as indicated. Likely length of stay 1 day. Coding Level of Care Code Acute Code for g Fwd Diagnoses Intermittent explosive disorder F63.81 Anxiety disorder, unspecified F41.9
[2024-10-22 19:59] VITALS: BP 119/61; PULSE 84; RESP 17; TEMP 36.6; O2SAT 98
[2024-10-22] MEDS: insulin glargine 100 units/1 mL 38 UNIT SUBCUT (20:24)
[2024-10-23 06:00] VITALS: BP 122/81; PULSE 95; RESP 20; TEMP 37.1; O2SAT 94
[2024-10-23 08:04] VITALS: BP 122/81
[2024-10-23] MEDS: ATORVASTATIN 10 MG TABLET 20 MG PO (08:04)
[2024-10-23] MEDS: oxybutynin chloride XL 5 MG TABLET PO (08:05)
[2024-10-23] MEDS: LEVONORGESTREL PO (08:09)
[2024-10-23] MEDS: ETHINYL ESTRADIOL PO (08:09)
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
[2024-10-23 13:48] VITALS: BP 117/71; PULSE 89; RESP 18; TEMP 36.6; O2SAT 89
[2024-10-23 14:13] VITALS: BP 117/71; PULSE 89; RESP 18; TEMP 36.6; O2SAT 94
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
== END 2024-10-23 15:50 | disposition home or self-care (01) | DRG 883 ==
LOC: ER 18:36 → NP 21:57
PROVIDERS: Admitting Provider Psychiatry & Neurology Psychiatry; Emergency Provider Physician Assistant; PCP Family Medicine; Visit Provider Psychiatry & Neurology Psychiatry
DX: F63.81 Intermittent explosive disorder (principal); Z68.43 Body mass index [BMI] 50.0-59.9, adult; F84.0 Autistic disorder; F70 Mild intellectual disabilities; E66.01 Morbid (severe) obesity due to excess calories; F41.9 Anxiety disorder, unspecified; Z88.1 Allergy status to other antibiotic agents; Z88.0 Allergy status to penicillin; E03.9 Hypothyroidism, unspecified; Z79.890 Hormone replacement therapy; Z79.4 Long term (current) use of insulin; Z79.84 Long term (current) use of oral hypoglycemic drugs; E11.9 Type 2 diabetes mellitus without complications; I10 Essential (primary) hypertension; K21.9 Gastro-esophageal reflux disease without esophagitis; F31.9 Bipolar disorder, unspecified; Z81.8 Family history of other mental and behavioral disorders; Z90.49 Acquired absence of other specified parts of digestive tract; Z62.812 Personal history of neglect in childhood; Z62.819 Personal history of unspecified abuse in childhood
CPT/HCPCS: 36415; 36416; 80053; 80306; 80307; 81001; 81025; 82962; 84443; 85025; 93005; 96372; 97150; 97165; 99285; J1815; J9999

== ENCOUNTER 2024-10-28 13:07 | Emergency (ER) | payer MEDICAID, SELFPAY ==
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
[2024-10-28 13:18] VITALS: BP 129/75; PULSE 81; RESP 18; TEMP 36.8; O2SAT 97; BMI 68.6
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
[2024-10-28 13:26] LABS: Hematocrit 38.8 % (36-47); Hemoglobin 12.30 g/dL (11.27-16.99); Mean Corpuscular HGB Conc 31.7 g/dL (30-55); Mean Corpuscular Hemoglobin 27.2 pg (27-33); Mean Corpuscular Volume 85.8 fl (85-98); Nucleated Red Blood Cells % 0 %; Platelet Count 238 10^3/cmm (157-399); Red Blood Count 4.52 10^6/uL (3.85-5.65); White Blood Count 5.55 10^3/uL (3.29-11.43)
[2024-10-28 13:43] LABS: Alanine Aminotransferase 21 U/L (0-33); Albumin Level 3.8 g/dL (3.5-5.2); Alkaline Phosphatase 108 U/L (35-105); Anion Gap 14.6 (5-19); Aspartate Amino Transferase 13 U/L (0-32); Blood Urea Nitrogen 9 mg/dL (6-20); Calcium 9.5 mg/dL (8.5-10.5); Carbon Dioxide 23 mmol/L (22-29); Chloride 105 mmol/L (98-107); Creatinine Clr Calc Pharmacy 118.7688; Globulin 3.6 g/dL (1.3-4.6); Glucose 147 mg/dL (65-115); Osmolality Calculated 287 mOsm/kg (285-295); Potassium 4.6 mmol/L (3.5-5.1); Sodium 138 mmol/L (136-145); Total Protein 7.4 g/dL (6.6-8.7)
[2024-10-28 13:45] LABS: Acetaminophen < 5.0 ug/mL (10-30); Salicylate < 0.3 mg/dL (3-10)
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
== END 2024-10-28 19:40 | disposition home or self-care (01) ==
PROVIDERS: Emergency Provider Family Medicine; PCP Family Medicine
DX: F63.81 Intermittent explosive disorder (principal); F41.9 Anxiety disorder, unspecified; Z79.84 Long term (current) use of oral hypoglycemic drugs; Z79.4 Long term (current) use of insulin; E11.9 Type 2 diabetes mellitus without complications; I10 Essential (primary) hypertension
CPT/HCPCS: 36415; 80053; 80307; 85025; 99283; J9999